=== PATIENT | male | born 1940 | race Caucasian/White ===

== ENCOUNTER 2017-06-13 08:00 | Outpatient (CLI) | payer MEDICARE, OTHER ==
[2017-06-13 19:30] LABS: THYROID STIMULATING HORMONE 6.17 uIU/mL (0.34-5.60)
[2017-06-13 19:35] LABS: PROLACTIN 6.79 ng/mL
[2017-06-13 20:27] LABS: FREE T4 (FREE THYROXINE) 0.74 ng/dL (0.58-1.64)
== END 2017-06-13 08:01 | disposition home or self-care (01) ==
LOC: LAB.WCP 08:00
PROVIDERS: ATTEND Family Medicine
DX: N62 Hypertrophy of breast (principal); R00.2 Palpitations; E11.9 Type 2 diabetes mellitus without complications
CPT/HCPCS: 36415; 84146; 84439; 84443

== ENCOUNTER 2017-07-08 14:03 | Outpatient (CLI) | payer MEDICARE, OTHER ==
--- NOTE | 2017-07-08 17:07 | Mammography Report ---
DIGITAL BILATERAL DIAGNOSTIC MAMMOGRAM: 07/08/2017 No comparison. INDICATION: Left breast pain. TECHNIQUE: Bilateral CC and MLO breast views. FINDINGS: There are bilateral subareolar flame shaped densities, left greater than right. In other regards, no evidence of dominant mass, architectural distortion, or concerning cluster of microcalcifications. IMPRESSION: 1. Bilateral gynecomastia left greater than right. BI-RADS category 2. Benign findings. 2. Recommend clinical testicular examination and screening chest x-ray. NOTE: These findings were discussed with the patient on the day of the exam, at approximately 2:30 p.m. and he expressed understanding. STANDARD QUALIFYING STATEMENTS 1. This examination was reviewed with the aid of Computed-Aided Detection (CAD) . 2. A negative or benign imaging report should not delay biopsy if clinically suspicious findings are present. Consider surgical consultation if warranted. More than 5 % of cancers are not identified by imaging. 3. Dense breasts may obscure an underlying neoplasm. TD: 07/08/2017 17:06 EMILY
== END 2017-07-08 14:04 | disposition home or self-care (01) ==
LOC: DI 14:03
PROVIDERS: ATTEND Family Medicine
DX: N62 Hypertrophy of breast (principal)
CPT/HCPCS: 77066

== ENCOUNTER 2017-11-20 12:35 | Outpatient (CLI) | payer MEDICARE, OTHER ==
[2017-11-20 19:05] LABS: BASOPHILS # (AUTO) 0.1 10^3/uL (0.0-0.1); BASOPHILS % (AUTO) 1.1 %; EOSINOPHILS # (AUTO) 0.2 10^3/uL (0.0-0.7); EOSINOPHILS % (AUTO) 3.8 %; HGB - HEMOGLOBIN 12.1 g/dL (14.0-18.0); LYMPHOCYTES # (AUTO) 1.4 10^3/uL (1.5-3.5); LYMPHOCYTES % (AUTO) 23.5 %; MEAN CORPUSCULAR HEMOGLOBIN 30.3 pg (27.0-31.0); MEAN CORPUSCULAR HGB CONC 34.4 g/dL (32.0-36.0); MEAN CORPUSCULAR VOLUME 88.1 fL (80.0-94.0); MEAN PLATELET VOLUME 7.4 fL (7.4-11.4); MONOCYTES # (AUTO) 0.5 10^3/uL (0.0-1.0); MONOCYTES % (AUTO) 7.7 %; NEUTROPHILS # (AUTO) 3.9 10^3/uL (1.5-6.6); NEUTROPHILS % (AUTO) 63.9 %; PLT - PLATELET COUNT 201 10^3/uL (130-450); RED CELL DISTRIBUTION WIDTH 13.2 % (12.0-15.0); WHITE BLOOD COUNT 6.1 x10^3/uL (4.8-10.8)
[2017-11-20 19:16] LABS: HB2 TOTAL 12.5 g/dL; HEMOGLOBIN A1C 0.74 g/dL; HEMOGLOBIN A1C % 7.6 % (4.6-6.2)
[2017-11-20 19:17] LABS: ALBUMIN/GLOBULIN RATIO 1.3 (1.0-2.2); ALKALINE PHOSPHATASE 68 IU/L (42-121); ALT ALANINE AMINOTRANSFERASE 24 IU/L (10-60); AST ASPARTATE AMINOTRANSFERASE 27 IU/L (10-42); BILIRUBIN,TOTAL 0.8 mg/dL (0.2-1.0); BUN - BLOOD UREA NITROGEN 22 mg/dL (6-20); CALCIUM 9.3 mg/dL (8.5-10.3); CARBON DIOXIDE - CO2 26 mmol/L (21-32); CHLORIDE 105 mmol/L (101-111); CHOL/HDL RATIO 2.8 (<5.0); CHOLESTEROL 110 mg/dL; CREATININE 1.1 mg/dL (0.6-1.2); GFR - MDRD 65 (>89); GLUCOSE 135 mg/dL (70-100); HDL CHOLESTEROL 39 mg/dL; LDL CHOLESTEROL,CALCULATED 51 mg/dL; LDL/HDL RATIO 1.3 (<3.6); SODIUM 138 mmol/L (135-145); TOTAL PROTEIN 7.2 g/dL (6.7-8.2); VLDL CHOLESTEROL 20 mg/dL
[2017-11-20 19:23] LABS: THYROID STIMULATING HORMONE 8.32 uIU/mL (0.34-5.60)
[2017-11-20 20:10] LABS: FREE T4 (FREE THYROXINE) 0.75 ng/dL (0.58-1.64)
[2017-11-20 20:52] LABS: PLATELET ESTIMATE, MANUAL NORMAL (130-450,000) (NORMAL); PLATELET MORPHOLOGY NORMAL APPEARANCE (NORMAL); RBC MORPHOLOGY (MULTIPLE) NORMAL APPEARANCE (NORMAL)
== END 2017-11-20 12:36 ==
LOC: LAB.WCP 12:35
PROVIDERS: ATTEND Family Medicine
DX: E11.40 Type 2 diabetes mellitus with diabetic neuropathy, unspecified (principal); E11.22 Type 2 diabetes mellitus with diabetic chronic kidney disease; N18.3 Chronic kidney disease, stage 3 (moderate)
CPT/HCPCS: 36415; 80053; 80061; 83036; 83721; 84439; 84443; 85025

== ENCOUNTER 2018-03-24 08:14 | Day surgery (SDC) | payer MEDICARE, OTHER ==
[2018-03-24] MEDS ORDERED: LIDOCAINE 1%-EPI 1:100000 30 ML MDV ONE (08:18)
[2018-03-24] MEDS ORDERED: BUPIVACAINE 0.25% PF 30 ML VIAL ONE (08:18)
[2018-03-24] MEDS ORDERED: LIDO GARGLE 30 ML BOTTLE ONE (08:19)
--- NOTE | 2018-03-24 08:43 | ANESTHESIA ---
Pre-Anesthesia VS, & Labs - Diagnosis bilateral carpal tunnel syndrome - Procedure bilateral carpal tunnel release Vital Signs: Temp Pulse Resp BP Pulse Ox 36.5 C 75 16 148/75 H 96 03/24/18 08:25 03/24/18 08:25 03/24/18 08:25 03/24/18 08:25 03/24/18 08:25 Height 5 ft 6 in Weight (kg) 71.7 kg - NPO >8 hours Home Medications and Allergies Home Medications: Ambulatory Orders Amlodipine Besylate 5 mg PO 03/24/18 Aspirin [Adult Aspirin] 81 mg PO 03/24/18 Atorvastatin Calcium 40 mg PO 03/24/18 Carvedilol [Coreg] 25 mg PO 03/24/18 Cyclobenzaprine [Flexeril] 10 mg PO PRN 03/24/18 Doxazosin [Cardura] 8 mg PO DAILY 03/24/18 Doxazosin [Cardura] 8 mg PO DAILY 03/24/18 Finasteride 5 mg PO 03/24/18 Finasteride [Proscar] 5 mg PO 03/24/18 Gabapentin 300 mg PO BID 03/24/18 Glimepiride 2 mg PO 03/24/18 Losartan Potassium 100 mg PO 03/24/18 Losartan Potassium [Cozaar] 100 mg PO 03/24/18 Metformin HCl [Fortamet] 1,000 mg PO 03/24/18 Naproxen Sodium [Aleve] 220 mg PO PRN 03/24/18 Omeprazole Magnesium [Prilosec] 10 mg PO 03/24/18 Oxycodone HCl 5 mg PO BID 03/24/18 Paroxetine HCl [Paxil] 20 mg PO 03/24/18 Amlodipine Besylate 5 mg PO 03/24/18 Aspirin [Adult Aspirin] 81 mg PO 03/24/18 Atorvastatin Calcium 40 mg PO 03/24/18 Carvedilol [Coreg] 25 mg PO 03/24/18 Cyclobenzaprine [Flexeril] 10 mg PO PRN 03/24/18 Doxazosin [Cardura] 8 mg PO DAILY 03/24/18 Doxazosin [Cardura] 8 mg PO DAILY 03/24/18 Finasteride 5 mg PO 03/24/18 Finasteride [Proscar] 5 mg PO 03/24/18 Gabapentin 300 mg PO BID 03/24/18 Glimepiride 2 mg PO 03/24/18 Losartan Potassium 100 mg PO 03/24/18 Losartan Potassium [Cozaar] 100 mg PO 03/24/18 Metformin HCl [Fortamet] 1,000 mg PO 03/24/18 Naproxen Sodium [Aleve] 220 mg PO PRN 03/24/18 Omeprazole Magnesium [Prilosec] 10 mg PO 03/24/18 Oxycodone HCl 5 mg PO BID 03/24/18 Paroxetine HCl [Paxil] 20 mg PO 03/24/18 Allergies/Adverse Reactions: Allergies Allergy/AdvReac Type Severity Reaction Status Date / Time No Known Drug Allergies Allergy Verified 03/23/18 13:30 Anes History & Medical History - Anesthetic History Anesthesia Complications: reports: Slow wake-up Family history of Anesthesia Complications: Denies Family history of Malignant Hyperthermia: Denies - Medical History Cardiovascular: reports: Coronary artery disease, [place] Pulmonary: reports: None Gastrointestinal: reports: None Urinary: reports: Benign prostate hypertrophy Musculoskeletal: reports: Chronic back pain, Other Endocrine/Autoimmune: reports: Type 2 diabetes Skin: reports: None - Surgical History General: Colonoscopy Cardiothoracic: Coronary stent, Angioplasty Orthopedic: Other Exam General: Alert (teeth are falling out), Oriented x3, Cooperative, No acute distress Dental: Other (teeth are falling out) Mouth Openin Fingerbreadth Neck Mobility: Normal Mallampati classification: II Thyromental Distance: greater than 6 cm Respiratory: Lungs clear, Normal breath sounds, No respiratory distress, No accessory muscle use Cardiovascular: Regular rate, Normal S1, Normal S2, No murmurs Neurological: Other (pain and loss of motor control of right leg) Mental/Cognitive Status: Alert/Oriented X3, Normal for patient Plan Anesthesia Type: General Consent for Procedure(s) Verified and Reviewed: Yes Code Status: Attempt Resuscitation ASA classification: 3-Severe systemic disease Is this case an emergency?: No
[2018-03-24] MEDS ORDERED: LACTATED RINGERS 1,000 ML IV ONE (08:45)
[2018-03-24 09:00] LABS: CALCIUM 9.3 mg/dL (8.5-10.3); CREATININE 1.4 mg/dL (0.6-1.2)
[2018-03-24] MEDS ORDERED: BUPIVACAINE 0.25% PF 30 ML VIAL SUBQ ONE ×2 (09:51)
[2018-03-24] MEDS ORDERED: LIDOCAINE 1%-EPI 1:100000 30 ML MDV SUBQ ONE ×2 (09:51)
[2018-03-24] MEDS ORDERED: ONDANSETRON 4 MG/2 ML VIAL IVP ONE (10:00)
[2018-03-24] MEDS ORDERED: LIDOCAINE-MPF 2% 5 ML VIAL IM ONE (10:00)
[2018-03-24] MEDS ORDERED: PROPOFOL 1000 MG/100 ML IV ONE (10:00)
[2018-03-24] MEDS ORDERED: MIDAZOLAM 2 MG/2 ML VIAL IVP ONE (10:00)
[2018-03-24] MEDS ORDERED: DEXAMETHASONE 4 MG/ML VIAL IVP ONE (10:00)
[2018-03-24] MEDS ORDERED: ONDANSETRON 4 MG/2 ML VIAL IVP PRN (10:18)
[2018-03-24] MEDS ORDERED: HYDROcod/ACETAM 5/325 MG TABLET PO PRN (10:18)
[2018-03-24 12:27] VITALS: BP 143/72
--- NOTE | 2018-03-24 13:23 | OPERATIVE REPORT ---
DATE OF SERVICE: 03/24/2018 Physician: Sergey Castro MD PREOPERATIVE DIAGNOSIS: Bilateral carpal tunnel syndrome. POSTOPERATIVE DIAGNOSIS: Bilateral carpal tunnel syndrome. PROCEDURE PERFORMED: Bilateral carpal tunnel release. OPERATING SURGEON: Sergey Castro MD ANESTHESIA TYPE/PROVIDER: General by Sumeet Oneal. INDICATIONS FOR SURGERY: Patient is a 77-year-old male with progressive carpal tunnel syndrome in both hands, who desires carpal tunnel release. The patient has failed nonoperative treatment. DESCRIPTION OF OPERATIVE PROCEDURE: Patient was taken to the operating room. He was given a general anesthetic in a supine position. The patient's arms were sterilely prepped and draped in a standard fashion, after which a surgical timeout was held, and then we progressed to marking of incision sites and infiltration with 1% lidocaine with epinephrine into the palmar tissues into the carpal tunnel. The surgery was performed identically in each hand, beginning with the left hand utilizing a 1-1/2-inch incision in the palm in line with the radial border of the ring finger, extending through skin and subcutaneous tissue, defining transverse carpal ligament, dividing it longitudinally, and then exposing and identifying the median nerve; no other abnormality was found. The area was irrigated and closed with 3-0 nylon interrupted, and sterile dressings were applied. The identical procedure was then done in the opposite hand with infiltration, followed by incision in the palm, dissection down through transverse carpal ligament, and closure with 4-0 nylon. Sterile dressings applied. At the conclusion, a small overwrap of 2-inch Ad was applied to each hand, and the patient was taken to recovery room in stable condition. ESTIMATED BLOOD LOSS: Minimal. COMPLICATIONS: None. COUNTS: Sponge and needle counts correct. TD: 03/24/2018 12:28 [facility]
== END 2018-03-24 08:15 | disposition home or self-care (01) ==
LOC: SDS 08:14
PROVIDERS: ATTEND Orthopaedic Surgery
PROC: 01N50ZZ Release Median Nerve, Open Approach (ICD-10-PCS; 2018-03-24)
PROC: 01N50ZZ Release Median Nerve, Open Approach (ICD-10-PCS; principal; 2018-03-24 09:30)
DX: G56.03 Carpal tunnel syndrome, bilateral upper limbs (principal); I25.10 Atherosclerotic heart disease of native coronary artery without angina pectoris; I10 Essential (primary) hypertension; Z95.5 Presence of coronary angioplasty implant and graft; E11.9 Type 2 diabetes mellitus without complications; Z79.84 Long term (current) use of oral hypoglycemic drugs; G56.21 Lesion of ulnar nerve, right upper limb; I25.2 Old myocardial infarction
CPT/HCPCS: 64721; 80048; J7120

== ENCOUNTER 2018-05-29 12:55 | Outpatient (CLI) | payer MEDICARE, OTHER ==
[2018-05-29 19:14] LABS: BASOPHILS # (AUTO) 0.1 10^3/uL (0.0-0.1); BASOPHILS % (AUTO) 1.3 %; EOSINOPHILS # (AUTO) 0.4 10^3/uL (0.0-0.7); EOSINOPHILS % (AUTO) 6.9 %; HGB - HEMOGLOBIN 11.4 g/dL (14.0-18.0); LYMPHOCYTES # (AUTO) 1.5 10^3/uL (1.5-3.5); LYMPHOCYTES % (AUTO) 26.3 %; MEAN CORPUSCULAR HEMOGLOBIN 29.8 pg (27.0-31.0); MEAN CORPUSCULAR HGB CONC 33.3 g/dL (32.0-36.0); MEAN CORPUSCULAR VOLUME 89.6 fL (80.0-94.0); MEAN PLATELET VOLUME 7.5 fL (7.4-11.4); MONOCYTES # (AUTO) 0.5 10^3/uL (0.0-1.0); MONOCYTES % (AUTO) 9.7 %; NEUTROPHILS # (AUTO) 3.1 10^3/uL (1.5-6.6); NEUTROPHILS % (AUTO) 55.8 %; PLT - PLATELET COUNT 208 10^3/uL (130-450); RED BLOOD COUNT 3.83 10^6/uL (4.70-6.10); RED CELL DISTRIBUTION WIDTH 13.3 % (12.0-15.0); WHITE BLOOD COUNT 5.5 x10^3/uL (4.8-10.8)
[2018-05-29 19:35] LABS: ALBUMIN/GLOBULIN RATIO 1.2 (1.0-2.2); ALKALINE PHOSPHATASE 80 IU/L (42-121); ALT ALANINE AMINOTRANSFERASE 21 IU/L (10-60); AST ASPARTATE AMINOTRANSFERASE 24 IU/L (10-42); BILIRUBIN,TOTAL 0.7 mg/dL (0.2-1.0); BUN - BLOOD UREA NITROGEN 34 mg/dL (6-20); CALCIUM 9.5 mg/dL (8.5-10.3); CARBON DIOXIDE - CO2 29 mmol/L (21-32); CHLORIDE 104 mmol/L (101-111); CHOLESTEROL 117 mg/dL; CREATININE 1.4 mg/dL (0.6-1.2); GFR - MDRD 49 (>89); GLUCOSE 121 mg/dL (70-100); HDL CHOLESTEROL 39 mg/dL; LDL CHOLESTEROL,CALCULATED 57 mg/dL; LDL/HDL RATIO 1.5 (<3.6); SODIUM 140 mmol/L (135-145); TOTAL PROTEIN 7.4 g/dL (6.7-8.2); VLDL CHOLESTEROL 21 mg/dL
[2018-05-29 20:12] LABS: FREE T4 (FREE THYROXINE) 0.76 ng/dL (0.58-1.64)
[2018-05-29 20:32] LABS: HB2 TOTAL 11.4 g/dL; HEMOGLOBIN A1C 0.71 g/dL; HEMOGLOBIN A1C % 7.8 % (4.6-6.2)
== END 2018-05-29 23:59 | disposition home or self-care (01) ==
LOC: LAB.WCP 12:55
PROVIDERS: ATTEND Family Medicine
DX: Z79.891 Long term (current) use of opiate analgesic (principal); E11.40 Type 2 diabetes mellitus with diabetic neuropathy, unspecified; N40.1 Benign prostatic hyperplasia with lower urinary tract symptoms; I10 Essential (primary) hypertension; Z12.5 Encounter for screening for malignant neoplasm of prostate; F41.9 Anxiety disorder, unspecified; R00.2 Palpitations
CPT/HCPCS: 36415; 80053; 80061; 83036; 83721; 84153; 84439; 84443; 85025

== ENCOUNTER 2018-12-08 08:00 | Outpatient (CLI) | payer MEDICARE, OTHER ==
[2018-12-08 19:07] LABS: BASOPHILS # (AUTO) 0.1 10^3/uL (0.0-0.1); BASOPHILS % (AUTO) 0.8 %; EOSINOPHILS # (AUTO) 0.3 10^3/uL (0.0-0.7); EOSINOPHILS % (AUTO) 4.1 %; HGB - HEMOGLOBIN 11.6 g/dL (14.0-18.0); LYMPHOCYTES % (AUTO) 15.6 %; MEAN CORPUSCULAR HEMOGLOBIN 29.2 pg (27.0-31.0); MEAN CORPUSCULAR HGB CONC 32.5 g/dL (32.0-36.0); MEAN CORPUSCULAR VOLUME 89.9 fL (80.0-94.0); MONOCYTES # (AUTO) 0.5 10^3/uL (0.0-1.0); MONOCYTES % (AUTO) 7.7 %; NEUTROPHILS # (AUTO) 4.5 10^3/uL (1.5-6.6); NEUTROPHILS % (AUTO) 71.3 %; PLT - PLATELET COUNT 202 10^3/uL (130-450); RED BLOOD COUNT 3.97 10^6/uL (4.70-6.10); RED CELL DISTRIBUTION WIDTH 12.8 % (12.0-15.0); WHITE BLOOD COUNT 6.4 x10^3/uL (4.8-10.8)
[2018-12-08 19:39] LABS: ALBUMIN 4.2 g/dL (3.2-5.5); ALBUMIN/GLOBULIN RATIO 1.2 (1.0-2.2); BILIRUBIN,TOTAL 0.8 mg/dL (0.2-1.0); CALCIUM 9.6 mg/dL (8.5-10.3); CREATININE 1.6 mg/dL (0.6-1.2); TOTAL PROTEIN 7.7 g/dL (6.7-8.2)
[2018-12-08 19:56] LABS: HEMOGLOBIN A1C 0.74 g/dL; HEMOGLOBIN A1C % 7.8 % (4.6-6.2)
[2018-12-08 20:16] LABS: FREE T4 (FREE THYROXINE) 0.76 ng/dL (0.58-1.64)
== END 2018-12-08 23:59 | disposition home or self-care (01) ==
LOC: LAB.WCP 08:00
PROVIDERS: ATTEND Family Medicine
DX: R07.89 Other chest pain (principal); I25.10 Atherosclerotic heart disease of native coronary artery without angina pectoris; E11.9 Type 2 diabetes mellitus without complications
CPT/HCPCS: 36415; 80053; 83036; 84439; 84443; 84484; 85025

== ENCOUNTER 2020-05-09 13:45 | Outpatient (CLI) | payer MEDICARE, OTHER ==
[2020-05-09 18:51] LABS: BASOPHILS # (AUTO) 0.1 10^3/uL (0.0-0.1); BASOPHILS % (AUTO) 1.1 %; EOSINOPHILS # (AUTO) 0.3 10^3/uL (0.0-0.7); EOSINOPHILS % (AUTO) 5.3 %; HGB - HEMOGLOBIN 11.1 g/dL (14.0-18.0); LYMPHOCYTES # (AUTO) 1.2 10^3/uL (1.5-3.5); LYMPHOCYTES % (AUTO) 22.2 %; MEAN CORPUSCULAR HEMOGLOBIN 29.6 pg (27.0-31.0); MEAN CORPUSCULAR HGB CONC 32.2 g/dL (32.0-36.0); MEAN PLATELET VOLUME 9.4 fL (7.4-11.4); MONOCYTES # (AUTO) 0.4 10^3/uL (0.0-1.0); MONOCYTES % (AUTO) 7.8 %; NEUTROPHILS # (AUTO) 3.5 10^3/uL (1.5-6.6); NEUTROPHILS % (AUTO) 63.2 %; PLT - PLATELET COUNT 208 10^3/uL (130-450); RED BLOOD COUNT 3.75 10^6/uL (4.70-6.10); RED CELL DISTRIBUTION WIDTH 12.8 % (12.0-15.0); WHITE BLOOD COUNT 5.5 x10^3/uL (4.8-10.8)
[2020-05-09 18:56] LABS: ALBUMIN 4.2 g/dL (3.2-5.5); ALBUMIN/GLOBULIN RATIO 1.4 (1.0-2.2); ALKALINE PHOSPHATASE 64 IU/L (42-121); ALT ALANINE AMINOTRANSFERASE 22 IU/L (10-60); AST ASPARTATE AMINOTRANSFERASE 22 IU/L (10-42); BILIRUBIN,TOTAL 0.7 mg/dL (0.2-1.0); BUN - BLOOD UREA NITROGEN 26 mg/dL (6-20); CALCIUM 9.5 mg/dL (8.5-10.3); CARBON DIOXIDE - CO2 28 mmol/L (21-32); CHLORIDE 101 mmol/L (101-111); CHOLESTEROL 119 mg/dL; CREATININE 1.5 mg/dL (0.6-1.2); GLUCOSE 191 mg/dL (70-100); HDL CHOLESTEROL 40 mg/dL; LDL CHOLESTEROL,CALCULATED 63 mg/dL; LDL/HDL RATIO 1.6 (<3.6); TOTAL PROTEIN 7.3 g/dL (6.7-8.2); VLDL CHOLESTEROL 16 mg/dL
[2020-05-09 19:46] LABS: FREE T4 (FREE THYROXINE) 0.88 ng/dL (0.58-1.64)
[2020-05-09 20:06] LABS: HEMOGLOBIN A1c% 9.5 % (4.27-6.07)
== END 2020-05-09 23:59 | disposition home or self-care (01) ==
LOC: LAB.WCP 13:45
PROVIDERS: ATTEND Family Medicine
DX: I12.9 Hypertensive chronic kidney disease with stage 1 through stage 4 chronic kidney disease, or unspecified chronic kidney disease (principal); N18.30 Chronic kidney disease, stage 3 unspecified; E11.42 Type 2 diabetes mellitus with diabetic polyneuropathy; M47.9 Spondylosis, unspecified; Z79.891 Long term (current) use of opiate analgesic; N40.0 Benign prostatic hyperplasia without lower urinary tract symptoms
CPT/HCPCS: 36415; 80053; 80061; 81599; 83036; 83525; 83721; 84439; 84443; 85025

== ENCOUNTER 2021-01-25 08:00 | Outpatient (CLI) | payer MEDICARE, OTHER ==
[2021-01-25 18:14] LABS: MICROALBUM/CREATININE RATIO,UR 9.2 ug/mg (<30.0); MICROALBUMIN,URINE 0.6 mg/dL (0-300.0)
[2021-01-25 18:21] LABS: CALCIUM 9.6 mg/dL (8.5-10.3); CREATININE 1.4 mg/dL (0.6-1.2); POTASSIUM 4.1 mmol/L (3.5-5.0)
[2021-01-25 20:29] LABS: ESTIMATED AVERAGE GLUCOSE 194 mg/dL (70-100); HEMOGLOBIN A1c% 8.4 % (4.27-6.07)
== END 2021-01-25 23:59 | disposition home or self-care (01) ==
LOC: LAB.WCP 08:00
PROVIDERS: ATTEND Family Medicine
DX: E11.42 Type 2 diabetes mellitus with diabetic polyneuropathy (principal); I12.9 Hypertensive chronic kidney disease with stage 1 through stage 4 chronic kidney disease, or unspecified chronic kidney disease; E11.22 Type 2 diabetes mellitus with diabetic chronic kidney disease; N18.31 Chronic kidney disease, stage 3a; N40.1 Benign prostatic hyperplasia with lower urinary tract symptoms; N13.8 Other obstructive and reflux uropathy; I25.10 Atherosclerotic heart disease of native coronary artery without angina pectoris; M47.9 Spondylosis, unspecified; M51.36 Other intervertebral disc degeneration, lumbar region; Z79.4 Long term (current) use of insulin; Z79.891 Long term (current) use of opiate analgesic
CPT/HCPCS: 36415; 80048; 82043; 82570; 83036

== ENCOUNTER 2021-05-07 08:00 | Outpatient (CLI) | payer MEDICARE, OTHER ==
[2021-05-07 18:51] LABS: BASOPHILS # (AUTO) 0.1 10^3/uL (0.0-0.1); BASOPHILS % (AUTO) 1.1 %; EOSINOPHILS # (AUTO) 0.3 10^3/uL (0.0-0.7); EOSINOPHILS % (AUTO) 4.5 %; HCT - HEMATOCRIT 34.7 % (42.0-52.0); HGB - HEMOGLOBIN 11.7 g/dL (14.0-18.0); LYMPHOCYTES # (AUTO) 1.4 10^3/uL (1.5-3.5); LYMPHOCYTES % (AUTO) 24.5 %; MEAN CORPUSCULAR HGB CONC 33.7 g/dL (32.0-36.0); MEAN PLATELET VOLUME 8.8 fL (7.4-11.4); MONOCYTES # (AUTO) 0.4 10^3/uL (0.0-1.0); MONOCYTES % (AUTO) 6.9 %; NEUTROPHILS # (AUTO) 3.4 10^3/uL (1.5-6.6); NEUTROPHILS % (AUTO) 62.3 %; PLT - PLATELET COUNT 295 10^3/uL (130-450); RED CELL DISTRIBUTION WIDTH 11.8 % (12.0-15.0); WHITE BLOOD COUNT 5.5 x10^3/uL (4.8-10.8)
[2021-05-07 19:01] LABS: THYROID STIMULATING HORMONE 5.14 uIU/mL (0.34-5.60)
[2021-05-07 19:05] LABS: CALCIUM 9.9 mg/dL (8.5-10.3); CARBON DIOXIDE - CO2 31 mmol/L (21-32); CHLORIDE 101 mmol/L (101-111); GLUCOSE 161 mg/dL (70-100); POTASSIUM 4.2 mmol/L (3.5-5.0); SODIUM 137 mmol/L (135-145)
[2021-05-07 19:27] LABS: CREATININE,URINE 59.9 mg/dL; MICROALBUM/CREATININE RATIO,UR 33.4 ug/mg (<30.0)
[2021-05-07 20:00] LABS: ALBUMIN/GLOBULIN RATIO 1.1 (1.0-2.2); ALKALINE PHOSPHATASE 65 IU/L (42-121); ALT ALANINE AMINOTRANSFERASE 31 IU/L (10-60); AST ASPARTATE AMINOTRANSFERASE 35 IU/L (10-42); BILIRUBIN,TOTAL 0.6 mg/dL (0.2-1.0); BUN - BLOOD UREA NITROGEN 32 mg/dL (6-20); CHOL/HDL RATIO 3.6 (<5.0); CHOLESTEROL 129 mg/dL; CREATININE 1.4 mg/dL (0.6-1.2); GFR - MDRD 49 (>89); HDL CHOLESTEROL 36 mg/dL; LDL CHOLESTEROL,CALCULATED 80 mg/dL; LDL/HDL RATIO 2.2 (<3.6); TOTAL PROTEIN 7.5 g/dL (6.7-8.2); TRIGLYCERIDES 67 mg/dL; VLDL CHOLESTEROL 13 mg/dL
[2021-05-07 23:27] LABS: ESTIMATED AVERAGE GLUCOSE 183 mg/dL (70-100)
== END 2021-05-07 23:59 ==
LOC: LAB.WCP 08:00
PROVIDERS: ATTEND Family Medicine
DX: E11.9 Type 2 diabetes mellitus without complications (principal); G89.29 Other chronic pain; E03.9 Hypothyroidism, unspecified; N40.0 Benign prostatic hyperplasia without lower urinary tract symptoms; I25.10 Atherosclerotic heart disease of native coronary artery without angina pectoris; I10 Essential (primary) hypertension; M51.36 Other intervertebral disc degeneration, lumbar region; Z79.4 Long term (current) use of insulin; Z79.899 Other long term (current) drug therapy
CPT/HCPCS: 36415; 80053; 80061; 82043; 82570; 83036; 83721; 84443; 85025

== ENCOUNTER 2022-12-26 12:39 | Outpatient (CLI) | payer MEDICARE, OTHER ==
--- NOTE | 2022-12-26 16:04 | MRI Report ---
PROCEDURE: LUMBAR SPINE WO INDICATIONS: LUMBAR SPINAL STENOSIS, LEFT SCIATIC NEUROPATHY TECHNIQUE: Noncontrast sagittal T1 spin echo and T2 fast echo, sagittal STIR, axial T1 and T2 fast spin echo thr ough the lumbar spine. In cases with scoliosis, additional coronal T2 fast spin echo may be performe d. COMPARISON: None. FINDINGS: Image quality: Excellent. Alignment and Curvature: There is normal bony alignment. Bone Marrow: Marrow is of normal overall signal. No acute vertebral body compression fractures. Spinal Cord: Conus medullaris terminates at the L1-L2 level. Visualized cord demonstrates normal si gnal and size. Paraspinous Soft Tissues: No paravertebral masses. T12-L1: Disc bulge. No canal stenosis or foraminal stenosis. L1-L2: Disc bulge. Bilateral facet hypertrophy. Left lateral recess stenosis. Mild to moderate lef t foraminal stenosis. L2-L3: Moderate to severe disc height loss. Diffuse posterior disc plus osteophyte. Facet and liga ment hypertrophy. Severe canal stenosis. Mild to moderate left foraminal stenosis. L3-L4: Disc bulge. Facet and ligament hypertrophy. Moderate canal stenosis. Mild to moderate bilate ral foraminal stenosis. L4-L5: Severe chronic disc height loss. Disc bulge. Facet hypertrophy. No significant central canal stenosis. Moderate bilateral foraminal stenosis with flattening deformity on the exiting bilateral f or nerve roots. L5-S1: Trace retrolisthesis of L5 on S1. Posterior disc plus osteophyte. Facet hypertrophy. Mild to moderate canal stenosis. Moderate to severe bilateral foraminal stenosis with flattening deformity o n the exiting bilateral L5 nerve roots. IMPRESSION: 1. There is multilevel degenerative disc space loss and multilevel facet arthropathy. 2. There is left lateral recess stenosis at L1-L2. Central canal stenosis is severe at L2-L3, moderat e at L3-L4, and mild to moderate at L5-S1. 3. Multilevel foraminal narrowing as described above. Findings include moderate bilateral foraminal n arrowing at L4-L5 and moderate to severe bilateral foraminal narrowing at L5-S1. Reviewed by: Kartik Villalobos MD on 12/26/2022 4:03 PM PDT Approved by: Kartik Villalobos MD on 12/26/2022 4:03 PM PDT Station ID: [id number]
== END 2022-12-26 12:40 | disposition home or self-care (01) ==
LOC: DI 12:39
PROVIDERS: ATTEND Family Medicine
DX: M48.061 Spinal stenosis, lumbar region without neurogenic claudication (principal); G57.02 Lesion of sciatic nerve, left lower limb; M47.816 Spondylosis without myelopathy or radiculopathy, lumbar region; M51.36 Other intervertebral disc degeneration, lumbar region; M47.817 Spondylosis without myelopathy or radiculopathy, lumbosacral region; M48.07 Spinal stenosis, lumbosacral region